=== PATIENT | male | born 1995 ===

== ENCOUNTER 2020-01-01 18:15 | Emergency (ER) | payer OTHER ==
[~2020-01-01] VITALS: Ht 185.4 cm; Wt 83.9 kg
[2020-01-01] MEDS ORDERED: LOSARTAN (18:46)
[2020-01-01] MEDS ORDERED: VISTARIL50 MG PO (21:34)
[2020-01-01] MEDS ORDERED: CHLORDIAZEPOXI1 EACH PO (21:34)
== END 2020-01-01 21:42 | disposition home or self-care (01) ==
LOC: ER 18:15
DX: R10.13 Epigastric pain (principal); F41.8 Other specified anxiety disorders; Z03.818 Encounter for observation for suspected exposure to other biological agents ruled out

== ENCOUNTER 2020-06-26 02:55 | Emergency (ER) | payer OTHER ==
[~2020-06-26] VITALS: Ht 185.4 cm; Wt 86.2 kg
[~2020-06-26 02:55] MED LIST: CHLORDIAZEPOXI1 EACH PO; LOSARTAN; VISTARIL50 MG PO
== END 2020-06-26 07:29 | disposition home or self-care (01) ==
LOC: ER 02:55
DX: R07.89 Other chest pain (principal); F14.129 Cocaine abuse with intoxication, unspecified